=== PATIENT | female | born 1965 | race Caucasian/White ===

== ENCOUNTER 2018-09-12 07:36 | Day surgery (SDC) | payer MEDICAID ==
[2018-09-12] VITALS (17 sets, daily range): BP systolic 108–130; BP diastolic 63–82; PULSE 18–76; RESP 11–18; Ht 160 cm; Wt 83.2 kg
[~2018-09-12] VITALS: Ht 160 cm; Wt 83.2 kg
[~2018-09-12 07:36] MED LIST: CEFAZOLIN 1 GM INJ ONE; DESFLURANE 15 MIN ONE; DEXAMETHASONE 4 MG/ML 5 ML INJ ONE; LIDOCAINE 2% (SDV) 5 ML INJ ONE; METOCLOPRAMIDE 10 MG INJ ONE; SUCCINYLCHOLINE CHLORIDE 100 MG/5 ML SYG IV ONE; metroNIDAZOLE 500 MG/100 ML NS IVPB ONE
[2018-09-12] MEDS ORDERED: PROPOFOL 20 ML ONE (15:27)
[2018-09-12] MEDS ORDERED: FENTAnyl 50 MCG/ML VIAL ONE (15:27)
[2018-09-12] MEDS ORDERED: MIDAZOLAM 1 MG/ML 2 ML INJ ONE (15:27)
--- NOTE | 2018-09-12 15:37 | PREAC ---
Date/Time of Note Date/Time of Note DATE: 09/12/18 TIME: 15:36 Anesthesia Eval and Record Evaluation Time Pre-Procedure Interview DATE: 09/12/18 TIME: 15:36 Age 52 Sex female NPO: 8 hrs Preoperative diagnosis anal mass Planned procedure anal exam under anesthesia Past Medical History Past Medical History: Includes Cardio: HTN Endo: Diabetes GI: Obesity Surgery & Anesthesia Issues No known issue Meds Anticoagulation: No Beta Jori within 24 hr: No Reason Beta Jori not given: Pt. not on B-Jori No Active Prescriptions or Reported Meds Meds reviewed: Yes Allergies Coded Allergies: No Known Allergy (Unverified , 09/12/18) Allergies Reviewed: Yes Labs/Studies Labs Reviewed: Reviewed by anesthesiologist Result Diagram: 09/12/18 1125 09/12/18 1125 Laboratory Tests 09/12/18 11:25 test: Negative Studies: ECG, CXR Pre-procedure Exam Last vitals Vital Signs Date Temp Pulse Resp B/P (MAP) Pulse Ox O2 O2 Flow FiO2 Time Delivery Rate 09/12/18 97.7 63 16 130/82 100 Room Air 11:45 (98) Airway: Adequate mouth opening, Adequate thyromental dist Mallampati: Mallampati III Teeth: Normal Lung: Normal Heart: Normal ASA Physical Status ASA physical status: 2 Emergency: None Planned Anesthetic General/MAC: ETT Planned Pain Management Parenteral pain med, Local by surgeon Pre-operative Attestations Prior to commencing anesthesia and surgery, the patient was re-evaluated, there was verification of: *The patient's identity *The results of appropriate recent lab work and preoperative vital signs *The above evaluation not changing prior to induction *Anesthetic plan, risk benefits, alternative and complications discussed with patient/family; questions answered; patient/family understands, accepts and wishes to proceed. ARMANDO CABRERA MD Sep 12, 2018 15:37
[2018-09-12] MEDS ORDERED: ONDANSETRON 4 MG INJ ONE (15:46)
[2018-09-12] MEDS ORDERED: ONDANSETRON 4 MG INJ IV PRN (16:00)
[2018-09-12] MEDS ORDERED: HYDROmorphONE 1 MG/5 ML IV SYRINGE IV PRN ×3 (16:00)
[2018-09-12] MEDS ORDERED: LABETALOL HCL 20MG INJ IV PRN (16:00)
[2018-09-12] MEDS ORDERED: FENTAnyl 50 MCG/ML VIAL IV PRN ×2 (16:00)
[2018-09-12] MEDS ORDERED: hydrALAzine 20 MG INJ IV PRN (16:00)
[2018-09-12] MEDS ORDERED: LEVALBUTEROL (NEB) 1.25 MG/0.5 ML AMP HHN PRN (16:00)
[2018-09-12] MEDS ORDERED: MEPERIDINE 25 MG INJ IV PRN (16:00)
[2018-09-12] MEDS ORDERED: DIPHENHYDRAMINE 50 MG INJ IV PRN (16:00)
[2018-09-12] MEDS ORDERED: MIDAZOLAM 1 MG/ML 2 ML INJ IV PRN (16:00)
[2018-09-12] MEDS ORDERED: HYDROmorphONE 2 MG/ML SYG ONE (16:02)
[2018-09-12] MEDS ORDERED: LABETALOL HCL 20MG INJ ONE (16:06)
[2018-09-12] MEDS ORDERED: hydrALAzine 20 MG INJ ONE (16:07)
--- NOTE | 2018-09-12 16:59 | SIPON ---
Date/Time of Note Date/Time of Note DATE: 09/12/18 TIME: 16:57 Operative Report Preoperative Diagnosis Rectal mass Postoperative Diagnosis Rectal mass suspicious for squamous cell carcinoma Operation/Procedure Performed Transanal resection of rectal tumor Surgeon see signature line social and human services assistant None Anesthesia: general Estimated blood loss: 10 - 50 ml's Transfusion Required none Specimen Portion of rectal mass x2 Grafts/Implants none Complications none UMBERTO MAIN MD Sep 12, 2018 16:59
--- NOTE | 2018-09-12 17:08 | PAC ---
Date/Time of Note Date/Time of Note DATE: 09/12/18 TIME: 17:07 Post-Anesthesia Notes Post-Anesthesia Note Last documented vital signs Vital Signs Date Temp Pulse Resp B/P (MAP) Pulse Ox O2 O2 Flow FiO2 Time Delivery Rate 09/12/18 98.3 17:05 09/12/18 63 16 130/82 100 Room Air 11:45 (98) Activity: WNL Respiratory function: WNL Cardiovascular function: WNL Mental status: Baseline Pain reasonably controlled: Yes Hydration appropriate: Yes Nausea/Vomiting absent: Yes ARMANDO CABRERA MD Sep 12, 2018 17:08
--- NOTE | 2018-09-12 19:30 | OPR ---
DATE OF OPERATION: 09/12/2018 PREOPERATIVE DIAGNOSIS: Rectal mass. POSTOPERATIVE DIAGNOSIS: Rectal mass, probable squamous cell carcinoma. OPERATION PERFORMED: Transanal excision of rectal mass. ANESTHESIA: General. ANESTHESIOLOGIST: Dr. Dominguez SURGEON: Fabian Rosas MD CAR TRIMMER: None. INDICATIONS FOR PROCEDURE: The patient is a 52-year-old female who presented with perianal pain. Sai jones was examined in my office, found to have on digital rectal exam, a very firm mass. 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 The patient consent ed and was scheduled for surgery. DESCRIPTION OF PROCEDURE: The patient was brought to the operating theater, placed under general end otracheal tube anesthesia. She was then placed into the prone jackknife position. The buttocks were widely taped, prepped and draped in usual sterile fashion. Initial digital exam reconfirmed the mas s primarily in the anterior region. A second gloved finger was used to fill from the inside of the v agina. It appeared that this mass was infiltrating the septum between the rectum and the vagina. At this point, Dr. Rosas resected a portion of the mass using the scalpel. It was sent for intraoperat yemi frozen section analysis by attending pathologist, Dr. Gil, stated it was very suspicious for squamous cell carcinoma, but that he wanted additional tumor for permanent sections. Therefore, a d istal portion of this mass was removed in sharp fashion using a knife. Bleeding was controlled with cautery. It was obvious that the entire mass could not be removed; therefore, the procedure was term inated. The patient tolerated the procedure well. The estimated blood loss was approximately 30 mL. There were no complications. The patient was transported in stable condition to the recovery room. Dictated By: FABIAN DE LA TORRE/CHAITANYA Conf#: [id number] DID#: [id number]
--- NOTE | 2018-09-13 18:00 | RADRPT ---
Vent Rate: 62 bpm RR Interval: 0 msec NM Interval: 148 msec QRS Duration: 90 msec QT Interval: 418 msec QTC Interval: 424 msec P-R-T [place]: 47 - 17 - 32 degrees Normal sinus rhythm Normal ECG Electronically Signed By: John Lowery
== END 2018-09-12 19:03 | disposition home or self-care (01) ==
LOC: SDS 07:36
PROVIDERS: ATTEND Surgery Surgical Oncology
DX: C20 Malignant neoplasm of rectum (principal); I10 Essential (primary) hypertension; E11.9 Type 2 diabetes mellitus without complications
CPT/HCPCS: 45171; 71045; 80053; 84703; 85025; 85610; 85730; 88307; 88331; 93005; J0360; J0690; J1100; J1170; J2250; J2405; J2765; J3010; Z7512; Z7610

== ENCOUNTER 2018-10-21 07:50 | Day surgery (SDC) | payer OTHER ==
[2018-10-21] VITALS (10 sets, daily range): BP systolic 97–119; BP diastolic 65–78; PULSE 68–76; RESP 10–18; Ht 160 cm; Wt 80.0 kg
[~2018-10-21] VITALS: Ht 160 cm; Wt 80.0 kg
[2018-10-21] MEDS ORDERED: LIDOCAINE 1%/EPI (1:100,000) (MDV) 20 ML ONE ×2 (09:53→09:54)
[2018-10-21] MEDS ORDERED: HEPARIN 1000 UNITS/ML 10 ML INJ ONE (09:53)
[2018-10-21] MEDS ORDERED: SOD CHLORIDE 0.9% 1,000 ML IV SCH (10:00)
[2018-10-21] MEDS ORDERED: POLYMYXIN/BACITRACIN 1L IRRIG IRR ONE (10:00)
[2018-10-21] MEDS ORDERED: CEFAZOLIN 1 GM/50 ML (PMX) 50 ML IVPB ONE ×2 (10:00→11:16)
[2018-10-21] MEDS ORDERED: FENTAnyl 50 MCG/ML VIAL ONE (11:16)
[2018-10-21] MEDS ORDERED: MIDAZOLAM 1 MG/ML 2 ML INJ ONE (11:17)
== END 2018-10-21 14:48 | disposition home or self-care (01) ==
LOC: SDS 07:50
PROVIDERS: ATTEND Internal Medicine Hematology & Oncology
DX: C21.0 Malignant neoplasm of anus, unspecified (principal)
CPT/HCPCS: 36561; 76942; C1788; J0690; J1644; J2250; J3010; Z7610